=== PATIENT | male | born 1955 | race American Indian/Alaskan Native ===

== ENCOUNTER 2017-03-02 23:49 | Emergency (ER) | payer MEDICAID ==
[2017-03-03 01:23] LABS: BASO % 0.8 % (0.0-2.0); EOS # 0.1 K/uL (0.0-0.7); EOS % 3.1 % (0.0-4.0); HEMATOCRIT 36.4 % (35.0-51.0); LYMPH # 2.1 K/uL (1.0-4.3); LYMPH % 51.3 % (20.0-40.0); MEAN CORPUSCULAR HEMOGLOBIN 38.1 pg (27.0-31.0); MEAN CORPUSCULAR HGB CONC 34.8 g/dL (33.0-37.0); MONO # 0.6 K/uL (0.0-0.8); MONO % 13.8 % (0.0-10.0); NRBC % 0.3 % (0.0-2.0); RED CELL DISTRIBUTION WIDTH 17.1 % (11.5-14.5)
[2017-03-03 01:25] LABS: URINE BILIRUBIN NEGATIVE (NEGATIVE); URINE COLOR Straw (YELLOW); URINE GLUCOSE (UA) NORMAL (Normal); URINE KETONE NEGATIVE (NEGATIVE); URINE LEUKOCYTE ESTERASE NEG Leu/uL (Negative); URINE PROTEIN 1+ mg/dL (NEGATIVE); URINE UROBILINOGEN NORMAL mg/dL (0.2-1.0)
--- NOTE | 2017-03-03 01:26 | C.PDOC ---
History Of Present Illness <Magdy Angel - Last Filed: 03/03/17 06:33> <Johnny Sheehan - Last Filed: 03/03/17 11:10> 61 y/o male presents to the ER due to acute alcohol intoxication. Patient admits to alcohol use. Denies suicidal ideation, homicidal ideation, or somatic complaints. (Magdy Angel) History Per: Patient History/Exam Limitations: no limitations Onset/Duration Of Symptoms: Hrs Current Symptoms Are (Timing): Still Present Suicide/Self Injury Attempted (Context): None Modifying Factor(s): Alcohol Severity: Mild Associated Symptoms: denies: Suicidal Thoughts, Suicidal Plan Recent travel outside of the [place]: No Additional History Per: Patient <Magdy Angel - Last Filed: 03/03/17 06:33> <Johnny Sheehan - Last Filed: 03/03/17 11:10> Time Seen by Provider: 03/03/17 01:26 Chief Complaint (Nursing): Substance Abuse Past Medical History Reviewed: Historical Data, Nursing Documentation, Vital Signs Family History: States: Unknown Family Hx - Social History Hx Alcohol Use: Yes Hx Substance Use: No - Immunization History Hx Tetanus Toxoid Vaccination: No Hx Influenza Vaccination: No Hx Pneumococcal Vaccination: No <Magdy Angel - Last Filed: 03/03/17 06:33> Review Of Systems Except As Marked, All Systems Reviewed And Found Negative. Constitutional: Positive for: Other (Alcohol intoxication) Cardiovascular: Negative for: Chest Pain Respiratory: Negative for: Shortness of Breath Gastrointestinal: Negative for: Abdominal Pain Genitourinary: Negative for: Dysuria Psych: Negative for: Suicidal ideation, Other (HOmicidal ideation) <Magdy Angel - Last Filed: 03/03/17 06:33> Physical Exam - Physical Exam Appears: Non-toxic, No Acute Distress, Other (Alcohol intoxication, (+) AOB) Skin: Warm, Dry Head: Atraumatic, Normacephalic Cardiovascular: Rhythm Regular Respiratory: Normal Breath Sounds, No Rales, No Rhonchi Gastrointestinal/Abdominal: Soft, No Tenderness Neurological/Psych: Oriented x3 (Awake and alert) <Magdy Angel - Last Filed: 03/03/17 06:33> ED Course And Treatment - Laboratory Results Result Diagrams: 03/03/17 01:19 03/03/17 01:19 O2 Sat by Pulse Oximetry: 94 (RA) Pulse Ox Interpretation: Normal <StanleyMagdy R - Last Filed: 03/03/17 06:33> - Laboratory Results Result Diagrams: 03/03/17 01:19 03/03/17 01:19 <Johnny Sheehan - Last Filed: 03/03/17 11:10> Medical Decision Making <Magdy Angel R - Last Filed: 03/03/17 06:33> <Johnny Sheehan - Last Filed: 03/03/17 11:10> Medical Decision Making: Impression: 61 y/o male presents to the ER due to acute alcohol intoxication. Plans: * ED Obs * Blood work up (Magdy Angel) ED OBSERVATION Date of observation admission: 03/03/17 Time of observation admission: 01:30 <Magdy Angel - Last Filed: 03/03/17 06:33> Discharge: Yes <Johnny Sheehan - Last Filed: 03/03/17 11:10> - Observation admission statement Patient is being placed in observation because:: Acute alcohol intoxication (Magdy Angel) - Goals of Observation Goals of observation are:: Sobriety (Magdy Angel) - Progress Note Progress Note: 03/03/17 11:09 Patient awake, alert, shaved, steady gait. Will discharge. (Johnny Sheehan) Disposition Counseled Patient/Family Regarding: Diagnosis - Disposition Disposition Time: 07:00 <Magdy Angel R - Last Filed: 03/03/17 06:33> <Johnny Sheehan - Last Filed: 03/03/17 11:10> - Disposition Disposition: HOME/ ROUTINE Condition: STABLE Instructions: Alcohol Intoxication (ED) Forms: [employer] (Nepali) - Clinical Impression Clinical Impression: Alcohol intoxication - Scribe Statement The provider has reviewed the documentation as recorded by the Scribe <Magdy Angel - Last Filed: 03/03/17 06:33> <Johnny Sheehan - Last Filed: 03/03/17 11:10> - Scribe Statement Evie roca All medical record entries made by the Scribe were at my direction and personally dictated by me. I have reviewed the chart and agree that the record accurately reflects my personal performance of the history, physical exam, medical decision making, and the department course for this patient. I have also personally directed, reviewed, and agree with the discharge instructions and disposition. (Magdy Angel) Physician Patient Turnover Patient Signed Over To: Johnny Sheehan Handoff Comments: alcohol intoxication, pending sobriety <Magdy Angel - Last Filed: 03/03/17 06:33>
[2017-03-03 01:28] LABS: URINE BLOOD NEGATIVE (NEGATIVE)
[2017-03-03 01:37] LABS: CHLORIDE 100 mmol/L (98-107); SODIUM 147 mmol/L (132-148)
[2017-03-03 01:38] LABS: POTASSIUM 2.9 mmol/L (3.6-5.2)
[2017-03-03 01:40] LABS: ALB/GLOB RATIO 0.8 (1.0-2.1); ALKALINE PHOSPHATASE 121 U/L (38-126); ALT/SGPT 33 U/L (21-72); AST/SGOT 79 U/L (17-59); BILIRUBIN,TOTAL 0.6 mg/dL (0.2-1.3); BLOOD UREA NITROGEN 5 mg/dL (9-20); CARBON DIOXIDE 30 mmol/L (22-30); GFR AFRICAN-AMERICAN > 60; GLUCOSE,RANDOM 88 mg/dL (75-110); TOTAL PROTEIN 7.5 g/dL (6.3-8.3)
[2017-03-03 01:41] LABS: CALCIUM 8.4 mg/dl (8.6-10.4)
[2017-03-03 01:53] LABS: ALCOHOL SERUM 423 mg/dl (0-10)
[2017-03-03 04:54] LABS: MEAN CELL VOLUME 109.7 fL (80.0-94.0)
[2017-03-03] MEDS ORDERED: Potassium Chloride 20 mEq ER Tab PO STA (07:34)
[2017-03-03] MEDS ORDERED: Potassium Chloride 20 mEq ER Tab PO ONE (07:36)
[2017-03-03 10:49] VITALS: BP 101/69; PULSE 72; RESP 17; TEMP 97.2; O2SAT 96
== END 2017-03-03 11:30 | disposition home or self-care (01) ==
LOC: C.ER 23:49
DX: F10.120 Alcohol abuse with intoxication, uncomplicated (principal); Y90.8 Blood alcohol level of 240 mg/100 ml or more